=== PATIENT | female | born 1950 | race Caucasian/White ===

== ENCOUNTER 2016-06-17 11:46 | Inpatient (IN) | payer OTHER ==
--- NOTE | ~2016-06-17 | A ---
[facility] DATE: 06/18/16 Patient: ISMA MOULTON Physician: GARY Address: [facility] Room/Bed: [address] [place] [address], Zip: [place] [address] Admit Date: 06/17/16 Date of : [birth year] Height: 5 3 Weight: 105 48 NUTRITIONAL ASSESSMENT: REASON: LOW BMI PT IS 66 Y.O. FEMALE ADMITTED FOR STROKE-LIKE SYMPTOMS, AMS PMH: RESIDENTIAL RESIDENT, DEMENTIA, HTN, HYPOTHYROIDISM, BIPOLAR DISORDER, SCHIZOPHRENIA, CKD Anthropometrics: 5'3", WT: 105# (48 KG), BMI: 18.6, 91%IBW Labs: BUN: 26, CA+: 10.3, GFR: 47.9 Meds: FISH OIL, SYNTHROID, MIRALAX, PEPCID, LACTULOSE, SENOKOT, NACL, D5% I/O & Bowel function: 806/- Skin Integrity: NO KNOWN SKIN ISSUES Estimated Nutrition Needs: INCREASED NUTRIENT NEEDS 2' PT UNDERWEIGHT, CURRENT CLINICAL CONDITION Assessment: CHART REVIEWED AND EVENTS NOTED. PT SEEN FOR LOW BMI. PT SLEEPY/LETHARGIC WELL CONFUSED AT TIME OF VISIT. PT NOT APPROPRIATE FOR DIET INTERVIEW. SITTER AT BEDSIDE REPORTS PT ONLY TOOK BITES OF LUNCH TRAY (LUNCH TRAY STILL AT BEDSIDE) BUT DRANK 100% JUICE. THIS RD ENCOURAGED SUPPLEMENT INTAKE, PT NODED HER HEAD "YES" TO MAGIC CUP, RD WILL ORDER. PER [employer], PT'S WEIGHT WAS ~118# BACK IN FEBRUARY 2016. PER RESIDENTIAL NOTES, PT RECEIVES MECHANICAL SOFT W/GROUND MEATS + THIN LIQUIDS. RD TO FOLLOW. SEE RECOMMENDATIONS BELOW. Dx: INADEQUATE PROTEIN-ENERGY INTAKE R/T DECREASED APPETITE, CURRENT CLINICAL CONDITION AEB SITTER REPORT ABOVE, LUNCH TRAY NOT TOUCHED, LOW BMI NOTED 18.6, WEIGHT LOSS SUSPECTED. Intervention: 1. MECHANICAL GROUND DIET 2. ELIU MAGIC CUP BID Monitoring, Evaluation and Goals: 1. PO INTAKE; PROVIDE AND CONSUME ADEQUATE NUTRITION W/NO C/O N/V/D (PO>50%) 2. WEIGHTS; PREVENT FURTHER WEIGHT LOSS 3. LABS; WNL 4. GI; PROMOTE REGULAR GI FUNCTION [facility] DATE: 06/18/16 Patient: ISMA MOULTON Physician: GARY Address: [facility] Room/Bed: [address] [place] [address], Zip: [place] [address] Admit Date: 06/17/16 Date of : [birth year] Height: 5 3 Weight: 105 48 MONITOR: -PO INTAKE/APPETITE -SUPPLEMENT INTAKE -WEIGHTS Recommendations: 1. ORDER ELIU MAGIC CUP BID W/MEALS 2. APPRECIATE FAMILY AND STAFF TO ENCOURAGE ADEQUATE KCAL, PROTEIN AND FLUID INTAKE RD WILL F/U PER PROTOCOL PT IS MILD/MODERATELY COMPROMISED Respectfully, CECY WILSON MS, RD, LD [facility] cc: client file
--- NOTE | ~2016-06-17 | HP ---
Unit #: [id number] #: [id number] Patient: ISMA MOULTON [id number] [facility]. [place], [place] [address] [id number] MR#: [id number] NAME: ISMA MOULTON ROOM: 304 Age: 66 Sex: F Admission Date: 06/17/2016 : 1950 Attending Physician: Bruna Bedoya M.D. Primary Care Physician: Idalmis Ty M.D. HISTORY AND PHYSICAL CHIEF COMPLAINT Mental status changes, slurred speech at the long-term. HISTORY OF PRESENT ILLNESS 66-year-old female who has significant psych history including dementia with behavior disorder, bipolar disorder, schizophrenia, major depression and also medical history of hypothyroidism, history of DVT on Xarelto, chronic constipation, positive for chronic kidney disease, was sent because of altered mental status and slurred speech. According to the nursing at the long-term, the patient was doing well until yesterday, but yesterday evening and arts administrator or manager they noted that she was slumped over. She had slurred speech. They could not pick her up. The patient was sent to ER. The patient had a CT scan done in ER, which seems to be normal at this time. The patient is a very poor historian, most of the history was taken from nurse at the long-term and also from the ER notes. The patient seems to be stable. She is lying down comfortably. Does not have any distress but obviously she is pretty confused. She is alert to herself. Per nurse, she was not having any fever, chills or rigors. No obvious chest pain. No diarrhea. No abdominal pain. No syncopal episode, although she has had fall in the past and she has been seen in ER. Patient is at [facility] at this time. She was transferred from [place], from what I understand because that place is closed down. PAST MEDICAL HISTORY 1. Dementia with behavioral disorder. 2. Bipolar disorder. 3. Schizophrenia. 4. Major depression. 5. Hypothyroidism. 6. Chronic kidney disease. 7. DVT on Xarelto. ALLERGIES Patient is allergic to penicillin, iodine, morphine and Sudafed. SOCIAL HISTORY The patient is a resident of a long-term. There is no history of smoking, alcohol, or drug abuse. PAST SURGICAL HISTORY History of cataract surgery, which was recently at [facility]. FAMILY HISTORY Unit #: [id number] #: [id number] Patient: SPRINGISMA Unknown at this time. REVIEW OF SYSTEMS As per history of presenting illness. HOME MEDICATIONS Seroquel 400 mg at bedtime; Klonopin 1 mg at bedtime; tramadol 50 mg q.6 p.r.n.; milk of mag 30 mL daily; Zantac 150 mg at bedtime; MiraLAX 17 g at bedtime; Zyprexa 15 mg at bedtime; lithium 300 mg at bedtime; Depakote 500 mg bedtime; Relpax 0.125 mg twice a day; Senna 17.2 mg daily; artificial tears twice a day; Xarelto 15 mg at night; Zyprexa 10 mg daily; lactulose 10 g daily; fenofibrate 150 mg in the morning; Cogentin 1 mg twice a day; acetaminophen p.r.n. basis; Synthroid 100 mcg daily; Seroquel 100 mg in the morning; fish oil capsule 1,000 mg daily; Depakote 250 mg daily. PHYSICAL EXAMINATION GENERAL: The patient is lying comfortably in bed. Does not seem to be in any respiratory distress. VITAL SIGNS: Blood pressure 114/69, respiratory rate 16, pulse 73, temperature 98.4, and oxygen saturation is 94%. The patient's BMI is 22. HEENT: Head is normocephalic. Eye movements normal. Patient is edentulous. Oral cavity seems to be dry. CHEST: Fair air entry. No additional sounds. CVS: S1 and S2 positive. Regular rhythm. ABDOMEN: Seems to be soft, no tenderness. EXTREMITIES: Negative edema. Pretty dry skin. 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 Is moving all her extremities, although neuro exam is kind of limited. DIAGNOSTIC STUDIES LABORATORY STUDIES: Workup so far shows WBC 10.9, hemoglobin 14.3, hematocrit 45.1, platelet count of 156. PT and INR 11.5 and 1.1. Troponin is less than 0.05. Glasgow is 0.9. Sodium 142, potassium 4.6, chloride 102, BUN 30, creatinine 1.4, calcium is 11.0. ASSESSMENT AND PLAN The patient is being admitted to telemetry unit: 1. Slurred speech per long-term, rule out CVA/TIA. 2. Mental status changes with worsening confusion. 3. Acute renal insufficiency. 4. Clinical dehydration. 5. Hypercalcemia, possibly secondary to dehydration. 6. History of dementia with behavioral disorder. 7. Hypothyroidism. 8. History of bipolar disorder/schizophrenia. 9. History of DVT on Xarelto. 10. Chronic constipation. PLAN Admit to telemetry unit. BMP calcium is being repeated. Cardiac enzymes will be done in the morning. IV fluids is normal. D5 normal saline at 75 mL an hour will be started. Urinalysis and blood culture will be done. MRI of the head will be done. Speech evaluation will be done. Klonopin is being discontinued. Dr. Moon will be consulted. TSH will be done. Medication as per med rec, which has been reviewed. Please refer to progress note for further orders. Dictated by Unit #: [id number] #: [id number] Patient: ISMA MOULTON Bobby Morales/wayne TD: 06/18/2016 07:00 JOB #: [id number] HISTORY AND PHYSICAL Page 1 of 1 X Bruna Bedoya MD X HISTORY AND PHYSICAL
--- NOTE | ~2016-06-17 | CO ---
Unit #: [id number] #: [id number] Patient: MEENA ALMENDAREZ [id number] [facility] [address] [place], [place] [address] [id number] I MR#: [id number] NAME: MEENA ALMENDAREZ ROOM: 304 Age: 66 Sex: F Admission Date: 06/17/2016 : 1950 Attending Physician: Bruna Bedoya M.D. Primary Care Physician: Idalmis Ty M.D. Consultation Date: 06/18/2016 CONSULTATION REPORT REASON FOR CONSULTATION History of schizophrenia, disorganized behavior. HISTORY OF PRESENT ILLNESS Ms. Meena Almendarez is a 66-year-old white female seen in room 304 bed-1 on 06/18/16 at [facility]. Patient dressed in hospital attire, disorganized behavior. Thought process - guarded, paranoid. Patient unable to give any reliable information. Patient was admitted with mental status change from the custodial with slurred speech with possible stroke. The patient has a history of dementia, bipolar disorder, schizophrenia, depression. Currently on multiple medications. Patient unable to give any reliable information. Guarded, paranoid, but denied thoughts of harming self or others. PAST PSYCHIATRIC HISTORY Remarkable for history of bipolar disorder, schizophrenia, dementia. MEDICAL HISTORY Patient has a history of bipolar disorder, schizophrenia, dementia, hypothyroidism, chronic kidney disease, DVT on Xarelto. ALLERGIES Penicillin, iodine, morphine. CURRENT MEDICATIONS Patient is currently on: 1. Xarelto. 2. Depakote. 3. Synthroid. 4. Seroquel 400 mg at bedtime, 100 mg in the morning. 5. Depakote 5 mg at bedtime. 6. [place] component 300 mg at bedtime. 7. Zyprexa 15 mg at bedtime. 8. MiraLAX. 9. Pepcid. 10. Cogentin. FAMILY HISTORY/SOCIAL HISTORY The patient is a resident of a custodial. No history of any abuse. No history of any substance abuse. REVIEW OF SYSTEMS Complete review of systems is remarkable for disorganized behavior, confusion, agitation. Unit #: [id number] #: [id number] Patient: MEENA ALMENDAREZ MENTAL STATUS EXAMINATION GENERAL APPEARANCE: Patient dressed in hospital attire. Attention span and concentration poor. Speech rapid. Oriented in self. Mood and affect were labile. Thought process circumstantial. Thought content - guarded, paranoid. Disorganized thought process, disorganized behavior. Denied any suicidal or homicidal ideation. Recent and remote memory poor. Language fair. Fund of knowledge poor. Insight and judgment impaired. DIAGNOSIS PSYCHIATRIC: Schizophrenia, chronic paranoid - F20.0. SECONDARY DIAGNOSIS Deferred. MEDICAL DIAGNOSIS Please refer to H and P. STRESSORS Psychosocial stressor. ASSESSMENT/PLAN 1. Supportive psychotherapy and psychoeducation provided to patient. 2. Educated about benefits and side effects of medication and course and prognosis of illness. 3. Patient's medication reviewed. Patient seems to be on a lot of medication. Will try to cut back on the medication. Advised to check Depakote level, serum ammonia level. Advised to discontinue lithium at this time as patient is also on other mood stabilizer. Continue with Zyprexa 15 mg at bedtime. Advised to lower the dosage of Seroquel to 400 mg at bedtime and discontinue morning Seroquel. We will continue to follow. Continue with a sitter. Need to consider further adjustment of medication. Please feel free to call if any questions. Telephone number [phone]. Dictated by... Bobby Jameson/lorenzo TD: 06/19/2016 11:49 JOB #: [id number] CONSULTATION REPORT Page 1 of 1 X Oliverio Moon MD X CONSULTATION REPORT
--- NOTE | ~2016-06-17 | CT71 ---
[facility] A Service of [facility] RADIOLOGY TEXT RESULTS PATIENT: ISMA MOULTON LOCATION: [facility] 304-01 : [birth year] UNIT #: [id number] AGE: [address]: Bruna Bedoya MD SEX: F ORDER DR: [id number] [facility]. [place], [place] [address] [id number] MR#: [id number] Acc #: [id number] NAME: ISMA MOULTON : 1950 SEX: F STUDY DATE/TIME: 06/17/2016 11:48 UNIT: [facility] ROOM: STUDY DESCRIPTION: CT Head Wo Contrast Attending Physician: Rommel Osorio M.D. Ordering Physician: Rommel Osorio M.D. Primary Care Physician: Idalmis Ty M.D. MEDICAL IMAGING REPORT This report is preliminary unless electronic signature is present EXAM CT brain without contrast media HISTORY Slurred speech since 06/16/2016. Referred by [facility]. History of dementia TECHNIQUE Transaxial imaging of the brain was performed without contrast and compared directly to the patient's prior study of February 07, 2016. The CT exam was performed with one or more of the following radiation dose reduction techniques: automatic exposure control, adjustment of mA and/or kV according to patient size, and iterative reconstruction. FINDINGS There is mild prominence of the ventricles and CSF-containing spaces. No intra or extraaxial mass lesions, fluid collections or mass effect are seen. No focal areas of low attenuation or evidence of acute intracranial hemorrhage. Bone windows are reviewed and are unremarkable. CONCLUSION Negative noncontrast CT of the brain. Dictated by... Danish Valdez M.D. THIS IS AN ELECTRONICALLY VERIFIED REPORT Danish Valdez M.D. at 06/19/2016 2:19 PM CLYDE/fan [facility] A Service [facility] RADIOLOGY TEXT RESULTS PATIENT: ISMA MOULTON LOCATION: [facility] 304-01 : [birth year] UNIT #: [id number] AGE: [address]: Bruna Bedoya MD SEX: F ORDER DR: TD: 06/17/2016 14:21 JOB #: [id number] MEDICAL IMAGING REPORT Page 1 of 1 COPY
--- NOTE | ~2016-06-17 | MR17 ---
[facility] A Service of [facility] RADIOLOGY TEXT RESULTS PATIENT: ISMA MOULTON LOCATION: [facility] 304-01 : [birth year] UNIT #: [id number] AGE: [address]: Bruna Bedoya MD SEX: F ORDER DR: [id number] [facility] [address] [facility] [place], [place] [address] [id number] I MR#: [id number] Acc #: [id number] NAME: ISMA MOULTON : 1950 SEX: F STUDY DATE/TIME: 06/18/2016 12:21 UNIT: A PCU ROOM: [facility] STUDY DESCRIPTION: MR Brain WWo Contrast Attending Physician: Bruna Bedoya M.D. Ordering Physician: Bruna Bedoya M.D. Primary Care Physician: Idalmis Ty M.D. MRI CENTER REPORT This report is preliminary unless electronic signature is present. EXAM MRI of the brain with and without HISTORY Slurred speech per longterm. Evaluate for TIA/CVA. Mental status changes, worsening confusion, history of dementia. Slurred speech began on 06/16/2016 history of chronic kidney disease. eGFR 47.7. No cancer history. COMMENT MRI of the brain was performed prior to and following intravenous administration of 9 mL of MultiHance. There is earlier head CT from 06/17/2016. Study is performed on a 1.5T system with motion limiting sequences because of patient's motion. This results in some technical limitation of the exam. There is no Chiari-I malformation. Midline structures are unremarkable. No extraaxial fluid collection. The major intracranial flow voids are maintained. Mastoid air cells are clear. The patient has had cataract surgery bilaterally. The paranasal sinuses are clear. Mild white matter signal abnormality is seen probably due to small vessel disease and within the range of typically seen in age group. No gross MRI evidence for intracranial hemorrhage. Following contrast administration, there is no pathologic intracranial enhancement. No intracranial mass lesion. IMPRESSION No acute intracranial abnormality suspected. Study is mildly motion limited. Mild probable sequelae of small vessel disease noted with generalized pattern of atrophy. STAT * RESULT [facility] A Service of [facility] RADIOLOGY TEXT RESULTS PATIENT: ISMA MOULTON LOCATION: [facility] 304-01 : [birth year] UNIT #: [id number] AGE: [address]: Bruna Bedoya MD SEX: F ORDER DR: Dictated by... Rachael Weems M.D. THIS IS AN ELECTRONICALLY VERIFIED REPORT Rachael Weems M.D. at 06/18/2016 3:45 PM Dayron TD: 06/18/2016 15:31 JOB #: [id number] MRI CENTER REPORT Page 1 of 1 COPY
--- NOTE | ~2016-06-17 | CO ---
Unit #: [id number] #: [id number] Patient: MEENA ALMENDAREZ [id number] [facility] [address] [place], [place] [address] [id number] I MR#: [id number] NAME: MEENA ALMENDAREZ ROOM: 304 Age: 66 Sex: F Admission Date: 06/17/2016 : 1950 Attending Physician: Bruna Bedoya M.D. Primary Care Physician: Idalmis Ty M.D. Consultation Date: 06/19/2016 CONSULTATION REPORT REASON FOR CONSULTATION Followup. DISCUSSION Ms. Meena Almendarez is a 66-year-old female, seen on room 304, bed 1 at [facility] on 06/19/2016. The patient continues to have disorganized thought process, but pleasant and cooperative. No agitation or aggression. The patient seems to be doing better with decreasing dosage of medication. Made good eye contact and able to answer questions, but still somewhat guarded and paranoid. REVIEW OF SYSTEMS Complete review of systems unremarkable. MENTAL STATUS EXAMINATION General appearance, the patient dressed casually. Attention span and concentration, poor. Speech, rapid and rambling. Oriented in self. Mood and affect, labile. Thought process, circumstantial. Thought content, guarded and paranoid. Recent and remote memory, poor. Language, fair. Fund of knowledge, impaired. Insight and judgment, impaired. DIAGNOSIS Schizophrenia, chronic paranoid type, F20.0. ASSESSMENT/PLAN 1. Supportive psychotherapy and psychoeducation provided to the patient. 2. Educated about benefits and side effects of medication and course and prognosis of illness. 3. Advised to continue with current medication. If needed, consider further adjustment of medication. We will continue to follow. Dictated by... Oliverio Moon M.D. CE/moni TD: 06/21/2016 05:23 JOB #: [id number] Unit #: [id number] #: [id number] Patient: MEENA ALMENDAREZ CONSULTATION REPORT Page 1 of 1 X Oliverio Moon MD CONSULTATION REPORT
--- NOTE | ~2016-06-17 | DS ---
Unit #: [id number] #: [id number] Patient: ISMA MOULTON [id number] [address] [id number] I MR#: [id number] NAME: ISMA MOULTON ROOM: 304 Age: 66 Sex: F Admission Date: 06/17/2016 : 1950 Discharge Date: Attending Physician: Bruna Bedoya M.D. Primary Care Physician: Idalmis Ty M.D. DISCHARGE SUMMARY DISCHARGE DIAGNOSES 1. Altered mental status, likely secondary to toxic metabolic encephalopathy, status post negative workup now mental status at baseline. 2. Questionable urinary tract infection. She was treated with empiric antibiotics. Culture shows mixed growth, less than 20,000 colonies. Procalcitonin negative. Discontinuing antibiotics, no sign of active infection. No leukocytosis. Patient is afebrile. 3. Status post acute kidney injury. 4. History of DVT on chronic anticoagulation. 5. History of dementia. 6. History of bipolar disorder and schizophrenia. 7. Hypothyroidism. DISPOSITION [facility] up with [facility] and primary psychiatry as an outpatient. DISCHARGE MEDICATIONS 1. Lactulose 10 grams p.o. daily. 2. Tylenol 500 mg b.i.d. p.r.n. 3. Xarelto 15 mg p.o. daily. 4. Depakote 250 mg p.o. q.a.m. 5. Depakote 500 mg p.o. h.s. 6. Claritin 10 mg daily. 7. [place] 150 mg p.o. q.a.m. 8. [place] 300 mg p.o. h.s. 9. Cogentin 1 mg p.o. b.i.d. 10. Seroquel 400 mg h.s. 11. Klonopin 1 mg p.o. h.s. p.r.n. for anxiety. 12. Milk of magnesia p.r.n. 13. MiraLAX 17 grams daily. 14. Senna 17.2 mg p.o. daily. 15. Pramipexole 0.125 mg p.o. b.i.d. 16. Artificial Tears to the eyes b.i.d. 17. Fish oil 1000 mg p.o. daily. 18. Pepcid 20 mg h.s. 19. Zyprexa 15 mg h.s. 20. Synthroid [address] Moon, psychiatry. DIAGNOSTIC STUDIES Unit #: [id number] #: [id number] Patient: 1. CT of the head without contrast negative. 2. MRI of the head with and without no acute intracranial abnormality. 3. Urine culture colony count around 20,000 mixed growth. 4. Procalcitonin level less than 0.05. 5. Last white count, 06/21/2016, 7.5. Patient is afebrile. HISTORY Please refer to History and Physical done by my colleague for initial presentation of this female. HOSPITAL COURSE Altered mental status, likely secondary to toxic metabolic encephalopathy status post negative MRI. Negative CT. Currently mental status is at her baseline. Questionable urinary tract infection was treated with antibiotics. Culture as above. Negative procalcitonin, negative leukocytosis. Negative fevers. Discontinue antibiotics. Acute renal failure, resolved. Last BUN 17 and creatinine 1.0. History of DVT. Continue Xarelto. Dementia. Continue home medications. History of bipolar disorder and schizophrenia. Continue psych medications. Outpatient followup with Psychiatry. Hypothyroidism. Continue Synthroid. DISPOSITION As above. DISCHARGE MEDICATIONS As above. Dictated by... Bossman Batista M.D. ALVARADO/leatha TD: 06/22/2016 18:42 JOB #: [id number] Unit #: [id number] #: [id number] Patient: DISCHARGE SUMMARY Page 1 of 1 X Bossman Batista MD X DISCHARGE SUMMARY
--- NOTE | ~2016-06-17 | EKG ---
PATIENT: ISMA MOULTON UNIT #: [id number] Ventricular Rate: 76 BPM Atrial Rate: 76 BPM P-R Interval: 148 ms QRS Duration: 84 ms Q-T Interval: 376 ms QTC Calculation(Bezet): 423 ms P Anita: 77 degrees Calculated R Anita: -19 degrees Calculated T Anita: 44 degrees Diagnosis Line: Normal sinus rhythm Diagnosis Line: Nonspecific T wave abnormality Diagnosis Line: Abnormal ECG Diagnosis Line: When compared with ECG of 28-JAN-2016 17:02, Diagnosis Line: No significant change was found Diagnosis Line: Confirmed by MAJOR MUHAMMAD MD ([id number]) on 06/17/2016 Diagnosis Line: 10:26:36 PM INTERPRETING MD: JB YOUNG
--- NOTE | ~2016-06-17 | CO ---
Unit #: [id number] #: [id number] Patient: MEENA ALMENDAREZ [id number] [facility] [address] [facility]. [place], [place] [address] [id number] I MR#: [id number] NAME: MEENA ALMENDAREZ ROOM: 304 Age: 66 Sex: F Admission Date: 06/17/2016 : 1950 Attending Physician: Bruna Bedoya M.D. Primary Care Physician: Idalmis Ty M.D. Consultation Date: 06/20/2016 CONSULTATION REPORT REASON FOR CONSULTATION Followup. DISCUSSION Ms. Meena Almendarez is a 66-year-old female, seen in room 304, bed 1 on 06/20/2016 at [facility]. The patient was diagnosed with schizophrenia, guarded, paranoid. Mood was labile, but pleasant, cooperative, redirectable. No aggressive behavior. Tolerating medication fairly well. The patient is able to smile, cooperative, redirectable. The patient's MRI scan showed no acute renal abnormalities. The patient's ammonia level 44, Depakote level 60. Urine culture showed mixed growth. The patient's affect was brighter, seems to be doing better after stopping lithium and lowering the dosage of Seroquel. REVIEW OF SYSTEMS Complete review of systems is unremarkable. MENTAL STATUS EXAMINATION General appearance, the patient dressed casually, lying comfortably in bed. Attention span and concentration were poor. Speech, rambling. Oriented to self. Mood and affect, labile. Thought process, circumstantial to tangential. Thought content, guarded and paranoid. Recent and remote memory, poor. Language, fair. Fund of knowledge, impaired. Insight and judgment, impaired. DIAGNOSIS Psychiatric: Schizophrenia, chronic paranoid type, F20.0. ASSESSMENT/PLAN 1. Supportive psychotherapy and psychoeducation provided to the patient. The patient unable to comprehend much. 2. Educated about benefits and side effects of medication and course and prognosis of illness. 3. Advised to continue with current medication. If needed, consider further adjustment of medication. We will continue to follow. Dictated by... Oliverio Moon M.D. CE/moni TD: 06/21/2016 05:32 JOB #: [id number] Unit #: [id number] #: [id number] Patient: SPRING,MEENA CONSULTATION REPORT Page 1 of 1 X Oliverio Moon MD CONSULTATION REPORT
[~2016-06-17 11:46] MED LIST: CHRONULAC10 GM/15 M PO; COGENTIN1 M1 PO; DEPAKOTE (UD)250 M1 PO; FISH OIL 1,001000 M1 PO; LEVOTHYROXINE100 MCG PO; LITHIUM CARBON150 MG PO; PROMOD946 ML PO; ZYPREXA10 MG PO
[2016-06-17 12:03] LABS: BASOPHIL% 0.3 % (0-2.5); EOSINOPHIL# 0.1 X10e3 (0-0.7); EOSINOPHIL% 0.7 % (0.0-7.0); HEMOGLOBIN 14.3 gm/dL (12.0-16.0); LYMPHOCYTE# 1.7 X10e3 (1.0-3.5); MEAN CELL VOLUME 100.4 FL (83-96); MEAN CORPUSCULAR HGB CONC 31.9 g/dL (30-36); MEAN PLATELET VOLUME 9.6 FL (6.5-11.5); MONOCYTE# 0.9 X10e3 (0-1.0); MONOCYTE% 8.4 % (3.0-12.0); NEUTROPHIL# 8.1 X10e3 (1.5-7.1); NEUTROPHIL% 74.6 % (40-75); PLATELET COUNT 156 X10e3 (140-420); RED BLOOD COUNT 4.48 X10e (3.90-5.30); RED CELL DISTRIBUTION WIDTH 13.2 % (11.0-15.5); WHITE BLOOD COUNT 10.9 X10e3 (4.0-10.5)
[2016-06-17 12:10] LABS: DIFF IND NO
[2016-06-17 12:24] LABS: INR 1.1; PROTHROMBIN TIME (PATIENT) 11.5 SECONDS (9.6-11.5)
[2016-06-17 12:37] LABS: POC - CKMB 8.3 ng/mL (0.0-7.9); POC - TROPONIN <0.05 ng/mL (<=0.05)
[2016-06-17 14:32] LABS: ALBUMIN SERUM 3.5 g/dL (3.5-5.0); BILIRUBIN, DIRECT 0.2 mg/dL (0.0-0.2); BILIRUBIN,INDIRECT 0.7 mg/dL (0.0-0.9); BILIRUBIN,TOTAL 0.9 mg/dL (0.2-2.0); PROTEIN TOTAL SERUM 6.3 g/dL (6.0-8.3)
[2016-06-17 14:47] LABS: BUN/CREATININE RATIO 21.42; CREATININE SERUM 1.4 mg/dL (0.6-1.4); GLOM FILT RATE Estimated 39.6 mL/min (>60); POTASSIUM 4.6 mmol/L (3.5-5.1)
[2016-06-17] MEDS ORDERED: CLARITIN10 M3 PO (16:04)
[2016-06-17] MEDS ORDERED: SYNTHROID75 MCG PO (16:04)
[2016-06-17] MEDS ORDERED: SEROQUEL100 MG PO (16:05)
[2016-06-17] MEDS ORDERED: DEPAKOTE250 MG PO (16:06)
[2016-06-17] MEDS ORDERED: FISH OIL 1,0001 EAC4 PO (16:06)
[2016-06-17] MEDS ORDERED: ZYPREXA10 MG PO (16:07)
[2016-06-17] MEDS ORDERED: LITHIUM CARBON150 MG PO (16:08)
[2016-06-17] MEDS ORDERED: LACTULOSE10 GM/152 PO (16:08)
[2016-06-17] MEDS ORDERED: COGENTIN1 M1 PO (16:09)
[2016-06-17] MEDS ORDERED: MAPAP500 MG PO (16:09)
[2016-06-17] MEDS ORDERED: PRAMIPEXOLE0.125 MG PO (16:10)
[2016-06-17] MEDS ORDERED: SENNA8.6 M1 PO ×2 (16:11)
[2016-06-17] MEDS ORDERED: ARTIFICIAL TEAR15 ML OU (16:12)
[2016-06-17] MEDS ORDERED: ZANTAC150 M1 PO (16:13)
[2016-06-17] MEDS ORDERED: XARELTO15 MG PO (16:13)
[2016-06-17] MEDS ORDERED: MIRALAX17 G2 PO (16:15)
[2016-06-17] MEDS ORDERED: ZYPREXA15 MG PO (16:15)
[2016-06-17] MEDS ORDERED: LITHIUM CARBON300 M1 PO (16:16)
[2016-06-17] MEDS ORDERED: DIVALPROEX SOD500 MG PO (16:17)
[2016-06-17] MEDS ORDERED: SEROQUEL400 MG PO (16:17)
[2016-06-17] MEDS ORDERED: KLONOPIN1 MG PO (16:18)
[2016-06-17] MEDS ORDERED: MILK OF MAGNESIA PO (16:19)
[2016-06-17] MEDS ORDERED: TRAMADOL HCL50 M2 PO (16:19)
[2016-06-18 05:56] LABS: BASOPHIL% 0.4 % (0-2.5); EOSINOPHIL# 0.3 X10e3 (0-0.7); EOSINOPHIL% 3.8 % (0.0-7.0); HEMATOCRIT 37.3 % (35.0-45.0); LYMPHOCYTE# 2.8 X10e3 (1.0-3.5); LYMPHOCYTE% 30.5 % (17.0-45.0); MEAN CORPUSCULAR HEMOGLOBIN 32.2 PG (28-34); MEAN CORPUSCULAR HGB CONC 32.5 g/dL (30-36); MEAN PLATELET VOLUME 8.9 FL (6.5-11.5); MONOCYTE# 0.7 X10e3 (0-1.0); MONOCYTE% 8.1 % (3.0-12.0); NEUTROPHIL# 5.2 X10e3 (1.5-7.1); NEUTROPHIL% 57.2 % (40-75); PLATELET COUNT 132 X10e3 (140-420); RED BLOOD COUNT 3.77 X10e (3.90-5.30); RED CELL DISTRIBUTION WIDTH 13.1 % (11.0-15.5); WHITE BLOOD COUNT 9.2 X10e3 (4.0-10.5)
[2016-06-18 06:11] LABS: DIFF IND NO; HEMOGLOBIN 12.1 gm/dL (12.0-16.0)
[2016-06-18 06:54] LABS: BUN/CREATININE RATIO 21.66; CALCIUM SERUM 10.3 mg/dL (8.4-10.2); CREATININE SERUM 1.2 mg/dL (0.6-1.4); GLOM FILT RATE Estimated 47.7 mL/min (>60); POTASSIUM 3.9 mmol/L (3.5-5.1)
[2016-06-18 10:50] LABS: URINE APPEARANCE CLOUDY; URINE BILIRUBIN NEG (NEG); URINE BLOOD NEG (NEG); URINE COLOR YELLOW; URINE GLUCOSE NEG (NEG); URINE KETONE TRACE (NEG); URINE LEUKOCYTE ESTERASE 2+ (NEG); URINE NITRATE NEG (NEG); URINE PROTEIN TRACE (NEG); URINE SPECIFIC GRAVITY 1.017 (1.003-1.035); URINE UROBILINOGEN 0.2 MG/DL (NEG)
[2016-06-18 10:53] LABS: CULTURE INDICATED? YES; URINE BACTERIA AUWI 2+ (NEGATIVE); URINE SQUAMOUS EPITHELIAL CELL MOD /[HPF]
[2016-06-18 11:04] LABS: URBCS1 AUWI 0-2 /[HPF] (0-2)
[2016-06-19 05:40] LABS: HEMATOCRIT 39.4 % (35.0-45.0); HEMOGLOBIN 12.8 gm/dL (12.0-16.0); MEAN CELL VOLUME 99.4 FL (83-96); MEAN CORPUSCULAR HEMOGLOBIN 32.3 PG (28-34); MEAN CORPUSCULAR HGB CONC 32.4 g/dL (30-36); MEAN PLATELET VOLUME 8.7 FL (6.5-11.5); RED BLOOD COUNT 3.96 X10e (3.90-5.30); RED CELL DISTRIBUTION WIDTH 12.8 % (11.0-15.5); WHITE BLOOD COUNT 8.3 X10e3 (4.0-10.5)
[2016-06-19 06:31] LABS: BUN/CREATININE RATIO 23.33; CALCIUM SERUM 9.9 mg/dL (8.4-10.2); CREATININE SERUM 0.9 mg/dL (0.6-1.4); GLOM FILT RATE Estimated 67.6 mL/min (>60); POTASSIUM 4.4 mmol/L (3.5-5.1)
[2016-06-20 06:28] LABS: URINE SOURCE CLEAN CATCH
[2016-06-20 06:43] LABS: URINE APPEARANCE CLEAR; URINE BILIRUBIN NEG (NEG); URINE BLOOD NEG (NEG); URINE COLOR YELLOW; URINE GLUCOSE NEG (NEG); URINE KETONE NEG (NEG); URINE LEUKOCYTE ESTERASE TRACE (NEG); URINE NITRATE NEG (NEG); URINE PROTEIN NEG (NEG); URINE UROBILINOGEN 0.2 MG/DL (NEG)
[2016-06-20 06:48] LABS: URBCS1 AUWI 0-2 /[HPF] (0-2); URINE BACTERIA AUWI NEG (NEGATIVE); URINE SQUAMOUS EPITHELIAL CELL NONE SEEN /[HPF]
[2016-06-20 06:53] LABS: CULTURE INDICATED? NO
[2016-06-21 06:08] LABS: HEMATOCRIT 38.8 % (35.0-45.0); HEMOGLOBIN 12.4 gm/dL (12.0-16.0); MEAN CELL VOLUME 99.3 FL (83-96); MEAN CORPUSCULAR HEMOGLOBIN 31.6 PG (28-34); MEAN CORPUSCULAR HGB CONC 31.8 g/dL (30-36); MEAN PLATELET VOLUME 8.3 FL (6.5-11.5); RED BLOOD COUNT 3.91 X10e (3.90-5.30); RED CELL DISTRIBUTION WIDTH 12.9 % (11.0-15.5); WHITE BLOOD COUNT 7.5 X10e3 (4.0-10.5)
[2016-06-21 07:09] LABS: CALCIUM SERUM 10.1 mg/dL (8.4-10.2); GLOM FILT RATE Estimated 59.5 mL/min (>60); POTASSIUM 4.4 mmol/L (3.5-5.1)
== END 2016-06-22 18:52 | DRG 682 ==
LOC: CED 11:46 → CEDOF 17:50 → C3A PCU 20:28
PROVIDERS: Emergency Medicine; Hospitalist; Physician Assistant Medical
DX: N17.9 Acute kidney failure, unspecified (principal); G92 Toxic encephalopathy; F03.91 Unspecified dementia, unspecified severity, with behavioral disturbance; E83.52 Hypercalcemia; N39.0 Urinary tract infection, site not specified; F20.0 Paranoid schizophrenia; Z86.718 Personal history of other venous thrombosis and embolism; Z79.01 Long term (current) use of anticoagulants; F31.9 Bipolar disorder, unspecified; E03.9 Hypothyroidism, unspecified; K59.09 Other constipation; N18.9 Chronic kidney disease, unspecified; R47.81 Slurred speech; E86.0 Dehydration; Z88.5 Allergy status to narcotic agent; Z88.0 Allergy status to penicillin; Z88.8 Allergy status to other drugs, medicaments and biological substances; Z91.048 Other nonmedicinal substance allergy status
CPT/HCPCS: 36415; 70450; 70553; 80048; 80076; 80164; 80178; 81003; 82140; 82308; 82330; 82550; 82553; 82947; 84443; 84484; 85025; 85027; 85610; 87086; 92507; 92523-GN; 92526; 92610; 93005; 97162; 99285; A9577; G8996-GN; G8997-GN; G8998-GN; J1956; J2060